=== PATIENT | female | born 1965 | race Caucasian/White ===

== ENCOUNTER 2017-03-23 21:27 | Inpatient (IN) ==
[2017-03-23] MEDS ORDERED: ALBUTEROL/IPRATROPIUM 3 ML NEB RESP TX STA (22:16)
[2017-03-23] MEDS ORDERED: INSULIN REGULAR 100 UNIT/ML SUBCUT STA (22:21)
[2017-03-23 22:43] LABS: ABG Base Excess 2.5 MMOL/L (-2.5-2.5); ABG HCO3 26.5 MMOL/L (20-26); ABG PCO2 47.9 MM HG (35-48); ABG PH 7.379 (7.35-7.45); ABG PO2 66.5 MM HG (80-95); ABG TCO2 25.7 MMOL/L (23-27); Allen Test Positive
[2017-03-23] MEDS ORDERED: INSULIN REGULAR 100 UNIT/ML ONE (23:10)
[2017-03-23 23:14] LABS: Basophils # 0.1 10*3/uL (0.0-0.2); Basophils % 0.7 % (0.0-0.8); Eosinophils # 0.2 10*3/uL (0.0-0.87); Eosinophils % 1.8 % (0.00-10.9); Hematocrit 32.9 VOL% (35.7-47.0); Hemoglobin 10.6 GM/DL (12.0-16.0); Immature Granulocytes % 0.5 %; Immature Granulocytes Absolute 0.05 #; Lymphocytes # 0.6 10*3/uL (1.4-4.0); Lymphocytes % 5.2 % (21.3-54.2); Mean Corpuscular HGB Conc 32.2 GM/DL (32-36); Mean Corpuscular Hemoglobin 32 PG (27-34); Monocytes # 0.4 10*3/uL (0.11-0.8); Monocytes % 3.4 % (1.7-12.7); Neutrophils # 9.4 10*3/uL (1.4-7.4); Neutrophils % 88.4 % (38.7-73.9); Platelet Count 207 T/CUMM (130-400); Red Blood Count 3.29 MC/CUMM (3.8-5.5); White Blood Count 10.6 T/CUMM (4-12)
[2017-03-23] MEDS ORDERED: LEVOFLOXACIN INJ 750 MG in PREMIX 1 EACH IV STA (23:30)
[2017-03-23 23:32] LABS: Alanine Aminotransferase 280 U/L (13-56); Albumin 3.5 G/DL (3.4-5.0); Alkaline Phosphatase 185 U/L (45-117); Aspartate Amino Transferase 164 U/L (0-37); Blood Urea Nitrogen 74 MG/DL (7-18); Calcium 7.8 MG/DL (8.5-10.1); Glucose 463 MG/DL (74-106); Potassium 5.6 MMOL/L (3.5-5.1); Sodium 136 MMOL/L (136-145); Total Protein 6.7 G/DL (6.4-8.3); Troponin I Only 0.019 NG/ML (0.00-0.045)
[2017-03-24] MEDS ORDERED: LEVOFLOXACIN INJ 150 ML IV ONE (00:15)
[2017-03-24] MEDS ORDERED: DEXTROSE 50% 25 GM/50 ML VIAL IV PRN ×2 (01:06→01:15)
[2017-03-24] MEDS ORDERED: GLUCAGON 1 MG VIAL IM PRN ×2 (01:06→01:15)
[2017-03-24] MEDS ORDERED: ACETAMINOPHEN 325 MG TABLET PO PRN (01:06)
[2017-03-24] MEDS ORDERED: HydrOXYzine PAMOATE 25 MG CAPSULE PO PRN (01:11)
[2017-03-24] MEDS: ALBUTEROL/IPRATROPIUM 3 ML NEB RESP TX SCH ×5 (02:25→23:57)
[2017-03-24 07:21] LABS: Basophils % 0.5 % (0.0-0.8); Eosinophils # 0.2 10*3/uL (0.0-0.87); Eosinophils % 2.6 % (0.00-10.9); Hematocrit 27.2 VOL% (35.7-47.0); Hemoglobin 9.2 GM/DL (12.0-16.0); Immature Granulocytes % 0.3 %; Immature Granulocytes Absolute 0.02 #; Lymphocytes # 0.9 10*3/uL (1.4-4.0); Mean Corpuscular HGB Conc 33.8 GM/DL (32-36); Mean Corpuscular Hemoglobin 33 PG (27-34); Mean Corpuscular Volume 96.8 FL (87-102); Mean Platelet Volume 11.9 FL (9.6-12.0); Monocytes # 0.4 10*3/uL (0.11-0.8); Monocytes % 6.3 % (1.7-12.7); Neutrophils # 4.6 10*3/uL (1.4-7.4); Neutrophils % 75.3 % (38.7-73.9); Platelet Count 179 T/CUMM (130-400); Red Blood Count 2.81 MC/CUMM (3.8-5.5); White Blood Count 6.1 T/CUMM (4-12)
[2017-03-24 07:59] LABS: Albumin 2.7 G/DL (3.4-5.0); Bilirubin,Total 0.8 MG/DL (0.2-1.0); Calcium 7.7 MG/DL (8.5-10.1); Osmolality,Calculated 312.5 MOS/KG (273-304); Potassium 4.8 MMOL/L (3.5-5.1); Total Protein 5.6 G/DL (6.4-8.3)
[2017-03-24 08:43] LABS: Hepatitis A Ab IgM Quant 0.05 Index; Hepatitis A Ab IgM Result Negative (Negative); Hepatitis B Core IgM Quant 0.07 Index; Hepatitis B Core IgM Result Negative (Negative); Hepatitis B Surface Ag Quant < 0.10 Index; Hepatitis B Surface Ag Result Negative (Negative); Hepatitis C Virus Ab Quant 0.14 Index; Hepatitis C Virus Ab Result Negative (Negative)
[2017-03-24] MEDS ORDERED: PNEUMOCOCCAL VACCINE (13 VALENT) 0.5 ML SYRINGE IM ONE (09:00)
[2017-03-24] MEDS ORDERED: INFLUENZA VIRUS VACCINE 0.5 ML SYRINGE IM ONE (09:00)
[2017-03-24] MEDS: INSULIN REGULAR 100 UNIT/ML SUBCUT SCH ×4 (09:08→20:54)
[2017-03-24] MEDS: ENOXAPARIN 30 MG/0.3 ML SYRINGE SUBCUT SCH (09:08)
[2017-03-24] MEDS: cefTRIAXone 1,000 MG in SYRINGE 1 EACH IV SCH (09:09)
[2017-03-24] MEDS: INSULIN LISPRO 100 UNIT/ML SUBCUT SCH ×3 (09:09→17:36)
[2017-03-24] MEDS: cloNIDine 0.1 MG TABLET PO SCH ×2 (09:10→20:53)
[2017-03-24] MEDS: CARVEDILOL 25 MG TABLET PO SCH ×2 (09:10→20:53)
[2017-03-24] MEDS: amLODIPine 10 MG TABLET PO SCH (09:10)
[2017-03-24] MEDS: AZITHROMYCIN INJ 500 MG in SODIUM CHLORIDE 0.45% 250 ML IV SCH (14:49)
[2017-03-24] MEDS: FOSINOPRIL 20 MG TABLET PO SCH (14:50)
[2017-03-24] MEDS ORDERED: diphenhydrAMINE CAP 25 MG CAPSULE PO ONE (19:36)
[2017-03-24] MEDS: AMITRIPTYLINE 10 MG TABLET PO SCH (20:53)
[2017-03-24] MEDS: INSULIN GLARGINE 100 UNIT/ML SUBCUT SCH (20:54)
[2017-03-25 03:04] LABS: Basophils # 0.1 10*3/uL (0.0-0.2); Basophils % 0.8 % (0.0-0.8); Eosinophils # 0.3 10*3/uL (0.0-0.87); Eosinophils % 4.5 % (0.00-10.9); Hematocrit 28.4 VOL% (35.7-47.0); Hemoglobin 9.1 GM/DL (12.0-16.0); Immature Granulocytes % 0.5 %; Immature Granulocytes Absolute 0.03 #; Lymphocytes # 1.3 10*3/uL (1.4-4.0); Lymphocytes % 19.9 % (21.3-54.2); Mean Corpuscular Hemoglobin 32 PG (27-34); Mean Corpuscular Volume 100.7 FL (87-102); Monocytes # 0.4 10*3/uL (0.11-0.8); Monocytes % 6.7 % (1.7-12.7); Neutrophils # 4.4 10*3/uL (1.4-7.4); Neutrophils % 67.6 % (38.7-73.9); Platelet Count 188 T/CUMM (130-400); Red Blood Count 2.82 MC/CUMM (3.8-5.5); Red Cell Distribution Width 15.1 % (9.3-17.3); White Blood Count 6.4 T/CUMM (4-12)
[2017-03-25 03:34] LABS: Albumin 2.9 G/DL (3.4-5.0); Bilirubin,Total 0.7 MG/DL (0.2-1.0); Calcium 7.6 MG/DL (8.5-10.1); Osmolality,Calculated 290.1 MOS/KG (273-304); Potassium 5.1 MMOL/L (3.5-5.1); Total Protein 5.8 G/DL (6.4-8.3)
[2017-03-25] MEDS: INSULIN REGULAR 100 UNIT/ML SUBCUT SCH ×3 (08:05→16:48)
[2017-03-25] MEDS: INSULIN LISPRO 100 UNIT/ML SUBCUT SCH ×3 (08:06→16:48)
[2017-03-25] MEDS: ALBUTEROL/IPRATROPIUM 3 ML NEB RESP TX SCH ×4 (08:23→23:18)
[2017-03-25] MEDS ORDERED: DEXTROSE 50% 25 GM/50 ML VIAL IV PRN (09:13)
[2017-03-25] MEDS ORDERED: GLUCAGON 1 MG VIAL IM PRN (09:13)
[2017-03-25] MEDS: cefTRIAXone 1,000 MG in SYRINGE 1 EACH IV SCH (10:04)
[2017-03-25] MEDS: ENOXAPARIN 30 MG/0.3 ML SYRINGE SUBCUT SCH (10:04)
[2017-03-25] MEDS: cloNIDine 0.1 MG TABLET PO SCH ×2 (10:05→21:40)
[2017-03-25] MEDS: amLODIPine 10 MG TABLET PO SCH (10:05)
[2017-03-25] MEDS: FOSINOPRIL 20 MG TABLET PO SCH (10:05)
[2017-03-25] MEDS: CARVEDILOL 25 MG TABLET PO SCH ×2 (10:05→21:40)
[2017-03-25] MEDS: AZITHROMYCIN INJ 500 MG in SODIUM CHLORIDE 0.45% 250 ML IV SCH (10:20)
[2017-03-25] MEDS ORDERED: LOPERAMIDE 2 MG CAPSULE PO PRN (13:43)
[2017-03-25] MEDS: AMITRIPTYLINE 10 MG TABLET PO SCH (21:40)
[2017-03-25] MEDS: INSULIN GLARGINE 100 UNIT/ML SUBCUT SCH (21:41)
[2017-03-26] MEDS: INSULIN REGULAR 100 UNIT/ML SUBCUT SCH ×3 (00:38→13:06)
[2017-03-26 03:03] LABS: Basophils % 0.7 % (0.0-0.8); Eosinophils # 0.4 10*3/uL (0.0-0.87); Eosinophils % 6.3 % (0.00-10.9); Hematocrit 26.7 VOL% (35.7-47.0); Hemoglobin 8.4 GM/DL (12.0-16.0); Immature Granulocytes % 0.3 %; Immature Granulocytes Absolute 0.02 #; Lymphocytes # 1.3 10*3/uL (1.4-4.0); Lymphocytes % 21.7 % (21.3-54.2); Mean Corpuscular HGB Conc 31.5 GM/DL (32-36); Mean Corpuscular Hemoglobin 32 PG (27-34); Mean Platelet Volume 11.4 FL (9.6-12.0); Monocytes # 0.4 10*3/uL (0.11-0.8); Monocytes % 7.1 % (1.7-12.7); Neutrophils # 3.7 10*3/uL (1.4-7.4); Neutrophils % 63.9 % (38.7-73.9); Platelet Count 169 T/CUMM (130-400); Red Blood Count 2.67 MC/CUMM (3.8-5.5); Red Cell Distribution Width 15.3 % (9.3-17.3); White Blood Count 5.8 T/CUMM (4-12)
[2017-03-26 03:30] LABS: Albumin 2.7 G/DL (3.4-5.0); Bilirubin,Total 0.6 MG/DL (0.2-1.0); Calcium 7.1 MG/DL (8.5-10.1); Osmolality,Calculated 298.8 MOS/KG (273-304); Potassium 5.5 MMOL/L (3.5-5.1); Total Protein 5.7 G/DL (6.4-8.3)
[2017-03-26] MEDS: ALBUTEROL/IPRATROPIUM 3 ML NEB RESP TX SCH (08:33)
[2017-03-26] MEDS: INSULIN LISPRO 100 UNIT/ML SUBCUT SCH ×2 (10:17→13:06)
[2017-03-26] MEDS: CARVEDILOL 25 MG TABLET PO SCH (10:22)
[2017-03-26] MEDS: FOSINOPRIL 20 MG TABLET PO SCH (10:22)
[2017-03-26] MEDS: cloNIDine 0.1 MG TABLET PO SCH (10:22)
[2017-03-26] MEDS: amLODIPine 10 MG TABLET PO SCH (10:22)
[2017-03-26] MEDS: ENOXAPARIN 30 MG/0.3 ML SYRINGE SUBCUT SCH (10:22)
[2017-03-26] MEDS: cefTRIAXone 1,000 MG in SYRINGE 1 EACH IV SCH (10:23)
[2017-03-26] MEDS ORDERED: MINOCYCLINE 100 MG CAPSULE PO SCH (12:00)
[2017-03-26 13:29] VITALS: BP 149/69
[2017-03-26] MEDS ORDERED: INFLUENZA VIRUS VACCINE 0.5 ML SYRINGE IM ONE (13:32)
== END 2017-03-26 13:34 | disposition home or self-care (01) | DRG 193 ==
LOC: N.ED 21:27 → N.EDINP 03-24 01:06 → SUATTDRO 03-24 01:06 → N.2E 03-24 01:30
PROVIDERS: ADMIT Internal Medicine; ATTEND Internal Medicine Infectious Disease

== ENCOUNTER 2017-05-10 00:53 | Inpatient (IN) ==
[2017-05-10] MEDS ORDERED: MORPHINE 2 MG/1 ML SYRINGE IV STA (01:22)
[2017-05-10] MEDS ORDERED: FUROSEMIDE 100 MG/10 ML VIAL IV STA (01:22)
[2017-05-10] MEDS ORDERED: ONDANSETRON 4 MG/2 ML VIAL IV STA (01:22)
[2017-05-10] MEDS ORDERED: NITROGLYCERIN 2% OINT 1 INCH/GM PACK TOP STA (01:22)
[2017-05-10] MEDS ORDERED: methylPREDNISolone SOD SUC 125 MG/2 ML VIAL IV STA (01:22)
[2017-05-10] MEDS ORDERED: ALBUTEROL 2.5 MG/3 ML NEB RESP TX SCH (01:30)
[2017-05-10] MEDS ORDERED: MORPHINE 2 MG/1 ML SYRINGE ONE (01:33)
[2017-05-10] MEDS ORDERED: FUROSEMIDE 40 MG/4 ML VIAL ONE (01:33)
[2017-05-10] MEDS ORDERED: NITROGLYCERIN 2% OINT 1 INCH/GM PACK TOP ONE (01:33)
[2017-05-10] MEDS ORDERED: ONDANSETRON 4 MG/2 ML VIAL ONE (01:33)
[2017-05-10] MEDS ORDERED: methylPREDNISolone SOD SUC 125 MG/2 ML VIAL ONE (01:34)
[2017-05-10 01:37] LABS: Basophils # 0.1 10*3/uL (0.0-0.2); Basophils % 0.7 % (0.0-0.8); Eosinophils # 0.4 10*3/uL (0.0-0.87); Eosinophils % 6.2 % (0.00-10.9); Hemoglobin 10.5 GM/DL (12.0-16.0); Immature Granulocytes % 0.4 %; Immature Granulocytes Absolute 0.03 #; Lymphocytes % 14.1 % (21.3-54.2); Mean Corpuscular HGB Conc 32.8 GM/DL (32-36); Mean Corpuscular Hemoglobin 32 PG (27-34); Mean Corpuscular Volume 98.5 FL (87-102); Mean Platelet Volume 12.3 FL (9.6-12.0); Monocytes # 0.4 10*3/uL (0.11-0.8); Monocytes % 5.5 % (1.7-12.7); Neutrophils # 5.1 10*3/uL (1.4-7.4); Neutrophils % 73.1 % (38.7-73.9); Platelet Count 159 T/CUMM (130-400); Red Blood Count 3.25 MC/CUMM (3.8-5.5); Red Cell Distribution Width 14.5 % (9.3-17.3); White Blood Count 6.9 T/CUMM (4-12)
[2017-05-10 01:51] LABS: PT Patient Result 10.5 SECS
[2017-05-10 02:18] LABS: Albumin 3.4 G/DL (3.4-5.0); Bilirubin,Total 0.7 MG/DL (0.2-1.0); Osmolality,Calculated 311.1 MOS/KG (273-304); Potassium 4.9 MMOL/L (3.5-5.1); Total Protein 6.5 G/DL (6.4-8.3); Troponin I Only 0.024 NG/ML (0.00-0.045)
[2017-05-10] MEDS ORDERED: INSULIN REGULAR 100 UNIT/ML SUBCUT STA (03:19)
[2017-05-10] MEDS ORDERED: LABETALOL 20 MG/4 ML SYRINGE IV ONE (04:16)
[2017-05-10] MEDS ORDERED: INSULIN REGULAR 100 UNIT/ML ONE (04:31)
[2017-05-10] MEDS ORDERED: GLUCAGON 1 MG VIAL IM PRN (06:56)
[2017-05-10] MEDS ORDERED: ACETAMINOPHEN 325 MG TABLET PO PRN (06:56)
[2017-05-10] MEDS ORDERED: HydrOXYzine PAMOATE 25 MG CAPSULE PO PRN (06:56)
[2017-05-10] MEDS ORDERED: DEXTROSE 50% 25 GM/50 ML VIAL IV PRN (06:56)
[2017-05-10 07:52] LABS: Troponin I Only 0.022 NG/ML (0.00-0.045)
[2017-05-10] MEDS: CARVEDILOL 25 MG TABLET PO SCH ×2 (09:05→21:04)
[2017-05-10] MEDS: cloNIDine 0.1 MG TABLET PO SCH ×2 (09:05→21:04)
[2017-05-10] MEDS: ENOXAPARIN 30 MG/0.3 ML SYRINGE SUBCUT SCH (09:05)
[2017-05-10] MEDS: CALCITRIOL 0.5 MCG CAPSULE PO SCH (09:05)
[2017-05-10] MEDS: amLODIPine 10 MG TABLET PO SCH (09:05)
[2017-05-10] MEDS: FOSINOPRIL 20 MG TABLET PO SCH (09:05)
[2017-05-10] MEDS: INSULIN REGULAR 100 UNIT/ML SUBCUT SCH ×2 (09:06→12:28)
[2017-05-10] MEDS: INSULIN LISPRO 100 UNIT/ML SUBCUT SCH ×4 (09:06→17:30)
[2017-05-10 13:22] LABS: Troponin I Only 0.021 NG/ML (0.00-0.045)
[2017-05-10] MEDS: hydrALAZINE 20 MG/1 ML VIAL IV PRN ×2 (15:49→23:40)
[2017-05-10] MEDS ORDERED: INSULIN GLARGINE 100 UNIT/ML SUBCUT SCH (21:00)
[2017-05-10] MEDS ORDERED: AMITRIPTYLINE 10 MG TABLET PO SCH (21:00)
[2017-05-11] MEDS: INSULIN LISPRO 100 UNIT/ML SUBCUT SCH ×5 (01:11→12:19)
[2017-05-11 04:59] LABS: Basophils % 0.4 % (0.0-0.8); Eosinophils # 0.2 10*3/uL (0.0-0.87); Eosinophils % 3.5 % (0.00-10.9); Hematocrit 27.2 VOL% (35.7-47.0); Immature Granulocytes % 0.3 %; Immature Granulocytes Absolute 0.02 #; Lymphocytes # 1.3 10*3/uL (1.4-4.0); Lymphocytes % 19.3 % (21.3-54.2); Mean Corpuscular HGB Conc 33.1 GM/DL (32-36); Mean Corpuscular Hemoglobin 32 PG (27-34); Mean Corpuscular Volume 97.5 FL (87-102); Monocytes # 0.5 10*3/uL (0.11-0.8); Monocytes % 7.7 % (1.7-12.7); Neutrophils # 4.7 10*3/uL (1.4-7.4); Neutrophils % 68.8 % (38.7-73.9); Platelet Count 142 T/CUMM (130-400); Red Blood Count 2.79 MC/CUMM (3.8-5.5); Red Cell Distribution Width 14.6 % (9.3-17.3); White Blood Count 6.9 T/CUMM (4-12)
[2017-05-11 05:30] LABS: Albumin 2.5 G/DL (3.4-5.0); Bilirubin,Total 0.6 MG/DL (0.2-1.0); Calcium 7.5 MG/DL (8.5-10.1); Osmolality,Calculated 287.8 MOS/KG (273-304); Potassium 4.9 MMOL/L (3.5-5.1); Total Protein 5.3 G/DL (6.4-8.3)
[2017-05-11] MEDS: CARVEDILOL 25 MG TABLET PO SCH (09:14)
[2017-05-11] MEDS: ENOXAPARIN 30 MG/0.3 ML SYRINGE SUBCUT SCH (09:14)
[2017-05-11] MEDS: cloNIDine 0.1 MG TABLET PO SCH (09:14)
[2017-05-11] MEDS: CALCITRIOL 0.5 MCG CAPSULE PO SCH (09:14)
[2017-05-11] MEDS: FOSINOPRIL 20 MG TABLET PO SCH (09:14)
[2017-05-11] MEDS: amLODIPine 10 MG TABLET PO SCH (09:14)
[2017-05-11 12:33] VITALS: BP 143/71
== END 2017-05-11 17:38 | disposition home or self-care (01) | DRG 189 ==
LOC: N.ED 00:53 → N.EDINP 04:07 → SUATTDRO 04:07 → N.TELES 06:45
PROVIDERS: ADMIT Family Medicine; ATTEND Internal Medicine

== ENCOUNTER 2017-05-29 08:31 | Inpatient (IN) ==
[2017-05-29 09:29] LABS: Basophils % 0.8 % (0.0-0.8); Eosinophils # 0.5 10*3/uL (0.0-0.87); Eosinophils % 12.4 % (0.00-10.9); Hematocrit 27.9 VOL% (35.7-47.0); Hemoglobin 9.4 GM/DL (12.0-16.0); Immature Granulocytes % 0.5 %; Immature Granulocytes Absolute 0.02 #; Lymphocytes # 0.4 10*3/uL (1.4-4.0); Lymphocytes % 11.4 % (21.3-54.2); Mean Corpuscular HGB Conc 33.7 GM/DL (32-36); Mean Corpuscular Hemoglobin 33 PG (27-34); Mean Corpuscular Volume 96.9 FL (87-102); Mean Platelet Volume 12.5 FL (9.6-12.0); Monocytes # 0.3 10*3/uL (0.11-0.8); Monocytes % 7.7 % (1.7-12.7); Neutrophils # 2.5 10*3/uL (1.4-7.4); Neutrophils % 67.2 % (38.7-73.9); Platelet Count 126 T/CUMM (130-400); Red Blood Count 2.88 MC/CUMM (3.8-5.5); Red Cell Distribution Width 13.5 % (9.3-17.3); White Blood Count 3.8 T/CUMM (4-12)
[2017-05-29 09:53] LABS: Albumin 3.2 G/DL (3.4-5.0); Bilirubin,Total 0.7 MG/DL (0.2-1.0); Calcium 7.4 MG/DL (8.5-10.1); Total Protein 6.6 G/DL (6.4-8.3)
[2017-05-29 09:54] LABS: Osmolality,Calculated 303.5 MOS/KG (273-304)
[2017-05-29 09:58] LABS: Potassium 6.3 MMOL/L (3.5-5.1)
[2017-05-29] MEDS ORDERED: SODIUM BICARBONATE 50 MEQ/50 ML VIAL IV STA (10:14)
[2017-05-29] MEDS ORDERED: INSULIN REGULAR 100 UNIT/ML IV STA (10:14)
[2017-05-29] MEDS ORDERED: DEXTROSE 50% 25 GM/50 ML VIAL IV STA (10:14)
[2017-05-29 10:19] LABS: Band Neutrophils 3 % (0-10); Eosinophils 16 % (0-10); Lymphocytes 12 % (20-55); Segmented Neutrophils 63 % (50-85); Total Cells Counted 100
[2017-05-29] MEDS ORDERED: DEXTROSE 50% 25 GM/50 ML SYRINGE IV ONE (10:19)
[2017-05-29 10:20] LABS: Hypochromasia 1+; Microcytosis Slight; Platelet Estimate Adequate
[2017-05-29] MEDS ORDERED: INSULIN REGULAR 100 UNIT/ML ONE (10:20)
[2017-05-29] MEDS ORDERED: SODIUM BICARBONATE 50 MEQ/50 ML SYRINGE IV ONE (10:21)
[2017-05-29] MEDS ORDERED: GLUCAGON 1 MG VIAL IM PRN (11:38)
[2017-05-29] MEDS ORDERED: DEXTROSE 50% 25 GM/50 ML VIAL IV PRN (11:38)
[2017-05-29] MEDS ORDERED: ONDANSETRON 4 MG/2 ML VIAL IV PRN (11:38)
[2017-05-29] MEDS ORDERED: ACETAMINOPHEN 325 MG TABLET PO PRN (11:38)
[2017-05-29] MEDS ORDERED: HydrOXYzine PAMOATE 25 MG CAPSULE PO PRN (11:42)
[2017-05-29] MEDS ORDERED: SODIUM CHLORIDE 0.9% 100 ML IV ONE (12:25)
[2017-05-29] MEDS ORDERED: DILTIAZEM 100 MG VIAL.ADD IV ONE (12:25)
[2017-05-29 16:50] LABS: Hepatitis A Ab IgM Quant 0.07 Index; Hepatitis A Ab IgM Result Negative (Negative); Hepatitis B Core IgM Quant 0.17 Index; Hepatitis B Core IgM Result Negative (Negative); Hepatitis B Surface Ag Quant < 0.10 Index; Hepatitis B Surface Ag Result Negative (Negative); Hepatitis C Virus Ab Quant 0.07 Index; Hepatitis C Virus Ab Result Negative (Negative)
[2017-05-29] MEDS: INSULIN LISPRO 100 UNIT/ML SUBCUT SCH ×3 (18:08→23:45)
[2017-05-29] MEDS: CARVEDILOL 25 MG TABLET PO SCH (18:41)
[2017-05-29] MEDS: LORazepam 0.5 MG TABLET PO SCH (21:32)
[2017-05-29] MEDS: cloNIDine 0.1 MG TABLET PO SCH (21:32)
[2017-05-29] MEDS: FLUoxetine 20 MG CAPSULE PO SCH (21:32)
[2017-05-29] MEDS: AMITRIPTYLINE 10 MG TABLET PO SCH (21:32)
[2017-05-30 04:49] LABS: Basophils % 0.6 % (0.0-0.8); Eosinophils # 0.4 10*3/uL (0.0-0.87); Eosinophils % 11.7 % (0.00-10.9); Hematocrit 25.7 VOL% (35.7-47.0); Hemoglobin 8.6 GM/DL (12.0-16.0); Immature Granulocytes % 0.6 %; Immature Granulocytes Absolute 0.02 #; Lymphocytes # 0.7 10*3/uL (1.4-4.0); Lymphocytes % 19.2 % (21.3-54.2); Mean Corpuscular HGB Conc 33.5 GM/DL (32-36); Mean Corpuscular Hemoglobin 33 PG (27-34); Mean Platelet Volume 12.2 FL (9.6-12.0); Monocytes # 0.2 10*3/uL (0.11-0.8); Monocytes % 6.7 % (1.7-12.7); Neutrophils # 2.2 10*3/uL (1.4-7.4); Neutrophils % 61.2 % (38.7-73.9); Platelet Count 112 T/CUMM (130-400); Red Blood Count 2.65 MC/CUMM (3.8-5.5); Red Cell Distribution Width 13.7 % (9.3-17.3); White Blood Count 3.6 T/CUMM (4-12)
[2017-05-30 05:16] LABS: Band Neutrophils 3 % (0-10); Eosinophils 17 % (0-10); Lymphocytes 14 % (20-55); Segmented Neutrophils 63 % (50-85); Total Cells Counted 100
[2017-05-30 05:17] LABS: Hypochromasia 1+; Microcytosis Slight; Platelet Estimate Decreased
[2017-05-30 05:23] LABS: Calcium 7.2 MG/DL (8.5-10.1); Osmolality,Calculated 295.4 MOS/KG (273-304); Potassium 4.6 MMOL/L (3.5-5.1); Thyroid Stimulating Hormone 1.58 uIU/ml (0.358-3.74)
[2017-05-30] MEDS: PANTOPRAZOLE 40 MG TABLET PO SCH (09:07)
[2017-05-30] MEDS: FOSINOPRIL 20 MG TABLET PO SCH (09:07)
[2017-05-30] MEDS: CARVEDILOL 25 MG TABLET PO SCH ×2 (09:07→16:56)
[2017-05-30] MEDS: INSULIN LISPRO 100 UNIT/ML SUBCUT SCH ×4 (09:07→21:49)
[2017-05-30] MEDS: LORazepam 0.5 MG TABLET PO SCH ×2 (09:07→21:49)
[2017-05-30] MEDS: valACYclovir 500 MG TABLET PO SCH (09:07)
[2017-05-30] MEDS: amLODIPine 10 MG TABLET PO SCH (09:07)
[2017-05-30] MEDS ORDERED: CALAMINE LOTION 180 ML BOTTLE TOP PRN (14:57)
[2017-05-30] MEDS ORDERED: INSULIN GLARGINE 100 UNIT/ML SUBCUT SCH (21:00)
[2017-05-30] MEDS: AMITRIPTYLINE 10 MG TABLET PO SCH (21:48)
[2017-05-30] MEDS: cloNIDine 0.1 MG TABLET PO SCH (21:49)
[2017-05-30] MEDS: FLUoxetine 20 MG CAPSULE PO SCH (21:49)
[2017-05-31 06:13] LABS: Calcium 6.6 MG/DL (8.5-10.1)
[2017-05-31 06:14] LABS: Osmolality,Calculated 291.8 MOS/KG (273-304); Potassium 5.1 MMOL/L (3.5-5.1)
[2017-05-31] MEDS: INSULIN LISPRO 100 UNIT/ML SUBCUT SCH ×3 (07:30→17:23)
[2017-05-31] MEDS: FOSINOPRIL 20 MG TABLET PO SCH (08:23)
[2017-05-31] MEDS: CARVEDILOL 25 MG TABLET PO SCH ×2 (08:24→17:23)
[2017-05-31] MEDS: valACYclovir 500 MG TABLET PO SCH (08:24)
[2017-05-31] MEDS: PANTOPRAZOLE 40 MG TABLET PO SCH (08:24)
[2017-05-31] MEDS: LORazepam 0.5 MG TABLET PO SCH (08:24)
[2017-05-31] MEDS: amLODIPine 10 MG TABLET PO SCH (08:24)
[2017-05-31] MEDS ORDERED: cloNIDine 0.1 MG TABLET PO ONE (13:22)
[2017-05-31 16:37] VITALS: BP 187/73
== END 2017-05-31 18:25 | disposition home or self-care (01) | DRG 880 ==
LOC: N.ED 08:31 → N.EDINP 11:36 → N.2E 13:29
PROVIDERS: ADMIT Internal Medicine Infectious Disease; ATTEND Internal Medicine Infectious Disease

== ENCOUNTER 2017-06-04 21:06 | Inpatient (IN) ==
[2017-06-04] MEDS ORDERED: FUROSEMIDE 40 MG/4 ML VIAL IV STA (22:11)
[2017-06-04] MEDS ORDERED: FUROSEMIDE 40 MG/4 ML VIAL ONE (22:34)
[2017-06-04 22:38] LABS: Basophils # 0.1 10*3/uL (0.0-0.2); Basophils % 0.7 % (0.0-0.8); Eosinophils # 0.4 10*3/uL (0.0-0.87); Hematocrit 26.4 VOL% (35.7-47.0); Hemoglobin 8.6 GM/DL (12.0-16.0); Immature Granulocytes Absolute 0.09 #; Lymphocytes # 0.8 10*3/uL (1.4-4.0); Lymphocytes % 9.6 % (21.3-54.2); Mean Corpuscular HGB Conc 32.6 GM/DL (32-36); Mean Corpuscular Hemoglobin 32 PG (27-34); Mean Corpuscular Volume 98.9 FL (87-102); Monocytes # 0.4 10*3/uL (0.11-0.8); Monocytes % 4.6 % (1.7-12.7); Neutrophils # 6.9 10*3/uL (1.4-7.4); Neutrophils % 79.1 % (38.7-73.9); Platelet Count 168 T/CUMM (130-400); Red Blood Count 2.67 MC/CUMM (3.8-5.5); Red Cell Distribution Width 14.2 % (9.3-17.3); White Blood Count 8.7 T/CUMM (4-12)
[2017-06-04] MEDS ORDERED: ALBUTEROL/IPRATROPIUM 3 ML NEB RESP TX STA (22:52)
[2017-06-04 22:57] LABS: Troponin I Only < 0.015 NG/ML (0.00-0.045)
[2017-06-04 22:59] LABS: Calcium 7.1 MG/DL (8.5-10.1)
[2017-06-04] MEDS ORDERED: NITROGLYCERIN 2% OINT 1 INCH/GM PACK TOP STA (23:56)
[2017-06-05] MEDS ORDERED: cloNIDine 0.1 MG TABLET ONE (01:24)
[2017-06-05] MEDS: cloNIDine 0.1 MG TABLET PO PRN ×2 (01:26→08:26)
[2017-06-05] MEDS ORDERED: NITROGLYCERIN DRIP 50 MG/250 ML BOTTLE IV SCH (01:30)
[2017-06-05] MEDS ORDERED: GLUCAGON 1 MG VIAL IM PRN (03:13)
[2017-06-05] MEDS ORDERED: DEXTROSE 50% 25 GM/50 ML VIAL IV PRN (03:13)
[2017-06-05] MEDS ORDERED: ONDANSETRON 4 MG/2 ML VIAL IV PRN (03:13)
[2017-06-05] MEDS ORDERED: MORPHINE 2 MG/1 ML SYRINGE IV PRN (03:13)
[2017-06-05] MEDS: DOCUSATE SODIUM 100 MG CAPSULE PO SCH ×2 (08:25→21:24)
[2017-06-05] MEDS: INSULIN REGULAR 100 UNIT/ML SUBCUT SCH ×3 (08:25→21:24)
[2017-06-05] MEDS: ENOXAPARIN 30 MG/0.3 ML SYRINGE SUBCUT SCH (08:25)
[2017-06-05] MEDS: PANTOPRAZOLE 40 MG TABLET PO SCH (08:25)
[2017-06-05 10:38] LABS: Hepatitis A Ab IgM Quant 0.09 Index; Hepatitis A Ab IgM Result Negative (Negative); Hepatitis B Core IgM Quant 0.19 Index; Hepatitis B Core IgM Result Negative (Negative); Hepatitis B Surface Ag Quant 0.53 Index; Hepatitis B Surface Ag Result Negative (Negative); Hepatitis C Virus Ab Quant 0.09 Index; Hepatitis C Virus Ab Result Negative (Negative)
[2017-06-05] MEDS ORDERED: ONDANSETRON ODT 4 MG TABLET PO PRN (16:43)
[2017-06-05] MEDS ORDERED: HydrOXYzine PAMOATE 25 MG CAPSULE PO PRN (16:43)
[2017-06-05] MEDS ORDERED: CALAMINE LOTION 180 ML BOTTLE TOP PRN (16:43)
[2017-06-05] MEDS ORDERED: traMADol 50 MG TABLET PO PRN (16:43)
[2017-06-05] MEDS ORDERED: hydrALAZINE 20 MG/1 ML VIAL IV ONE (18:08)
[2017-06-05] MEDS ORDERED: FOSINOPRIL 20 MG TABLET PO ONE (18:09)
[2017-06-05] MEDS ORDERED: amLODIPine 10 MG TABLET PO ONE (18:09)
[2017-06-05] MEDS: ALBUTEROL/IPRATROPIUM 3 ML NEB RESP TX SCH ×2 (18:18→20:57)
[2017-06-05 18:26] LABS: ABG Base Excess 5.4 MMOL/L (-2.5-2.5); ABG HCO3 29.2 MMOL/L (20-26); ABG Oxygen Saturation 90.6 % (95-100); ABG PCO2 37.6 MM HG (35-48); ABG PH 7.494 (7.35-7.45); ABG PO2 58.1 MM HG (80-95); ABG TCO2 26.5 MMOL/L (23-27)
[2017-06-05 19:10] LABS: Calcium 7.6 MG/DL (8.5-10.1); Potassium 5.1 MMOL/L (3.5-5.1)
[2017-06-05] MEDS: LORazepam 2 MG/1 ML VIAL IV PRN (19:30)
[2017-06-05] MEDS: NITROGLYCERIN DRIP 50 MG/250 ML BOTTLE IV SCH (21:00)
[2017-06-05] MEDS: INSULIN LISPRO 100 UNIT/ML SUBCUT SCH (21:24)
[2017-06-05] MEDS: CARVEDILOL 25 MG TABLET PO SCH (21:24)
[2017-06-05] MEDS: FLUoxetine 20 MG CAPSULE PO SCH (21:25)
[2017-06-05] MEDS: AMITRIPTYLINE 10 MG TABLET PO SCH (21:25)
[2017-06-05] MEDS: INSULIN GLARGINE 100 UNIT/ML SUBCUT SCH (21:25)
[2017-06-05 22:53] LABS: ABG Base Excess 2.4 MMOL/L (-2.5-2.5); ABG HCO3 26.5 MMOL/L (20-26); ABG Oxygen Saturation 97.6 % (95-100); ABG PCO2 39.8 MM HG (35-48); ABG PH 7.435 (7.35-7.45); ABG PO2 92.6 MM HG (80-95); ABG TCO2 24.8 MMOL/L (23-27)
[2017-06-06] MEDS: ALBUTEROL/IPRATROPIUM 3 ML NEB RESP TX SCH ×7 (00:22→23:45)
[2017-06-06] MEDS: cloNIDine 0.1 MG TABLET PO PRN ×4 (02:44→20:37)
[2017-06-06] MEDS: INSULIN REGULAR 100 UNIT/ML SUBCUT SCH ×5 (07:30→20:09)
[2017-06-06] MEDS: PANTOPRAZOLE 40 MG TABLET PO SCH (08:46)
[2017-06-06] MEDS: amLODIPine 10 MG TABLET PO SCH (08:46)
[2017-06-06] MEDS: CARVEDILOL 25 MG TABLET PO SCH ×2 (08:46→20:37)
[2017-06-06] MEDS: ENOXAPARIN 30 MG/0.3 ML SYRINGE SUBCUT SCH (08:46)
[2017-06-06] MEDS: DOCUSATE SODIUM 100 MG CAPSULE PO SCH ×2 (08:46→20:36)
[2017-06-06] MEDS: INSULIN LISPRO 100 UNIT/ML SUBCUT SCH ×3 (08:47→17:11)
[2017-06-06] MEDS: FOSINOPRIL 20 MG TABLET PO SCH (09:35)
[2017-06-06 13:42] LABS: Osmolality,Calculated 294.5 MOS/KG (273-304); Potassium 5.6 MMOL/L (3.5-5.1)
[2017-06-06] MEDS: NITROGLYCERIN DRIP 50 MG/250 ML BOTTLE IV SCH (20:09)
[2017-06-06] MEDS: HydrOXYzine PAMOATE 25 MG CAPSULE PO PRN (20:36)
[2017-06-06] MEDS: AMITRIPTYLINE 10 MG TABLET PO SCH (20:37)
[2017-06-06] MEDS: FLUoxetine 20 MG CAPSULE PO SCH (20:37)
[2017-06-06] MEDS: INSULIN GLARGINE 100 UNIT/ML SUBCUT SCH (20:37)
[2017-06-07] MEDS: cloNIDine 0.1 MG TABLET PO PRN ×4 (00:17→07:46)
[2017-06-07] MEDS: ALBUTEROL/IPRATROPIUM 3 ML NEB RESP TX SCH ×5 (03:10→21:15)
[2017-06-07 05:13] LABS: Basophils % 0.5 % (0.0-0.8); Eosinophils # 0.4 10*3/uL (0.0-0.87); Eosinophils % 7.3 % (0.00-10.9); Hematocrit 22.8 VOL% (35.7-47.0); Hemoglobin 7.4 GM/DL (12.0-16.0); Immature Granulocytes % 0.5 %; Immature Granulocytes Absolute 0.03 #; Lymphocytes # 1.1 10*3/uL (1.4-4.0); Lymphocytes % 19.4 % (21.3-54.2); Mean Corpuscular HGB Conc 32.5 GM/DL (32-36); Mean Corpuscular Hemoglobin 32 PG (27-34); Mean Corpuscular Volume 98.7 FL (87-102); Mean Platelet Volume 12.1 FL (9.6-12.0); Monocytes # 0.4 10*3/uL (0.11-0.8); Monocytes % 7.3 % (1.7-12.7); Neutrophils # 3.7 10*3/uL (1.4-7.4); Platelet Count 158 T/CUMM (130-400); Red Blood Count 2.31 MC/CUMM (3.8-5.5); Red Cell Distribution Width 14.4 % (9.3-17.3); White Blood Count 5.8 T/CUMM (4-12)
[2017-06-07 05:31] LABS: Calcium 6.9 MG/DL (8.5-10.1); Osmolality,Calculated 296.5 MOS/KG (273-304); Potassium 5.9 MMOL/L (3.5-5.1)
[2017-06-07] MEDS: INSULIN REGULAR 100 UNIT/ML SUBCUT SCH ×4 (08:03→22:44)
[2017-06-07] MEDS: CARVEDILOL 25 MG TABLET PO SCH ×2 (08:19→22:44)
[2017-06-07] MEDS: PANTOPRAZOLE 40 MG TABLET PO SCH (08:19)
[2017-06-07] MEDS: amLODIPine 10 MG TABLET PO SCH (08:19)
[2017-06-07] MEDS: ENOXAPARIN 30 MG/0.3 ML SYRINGE SUBCUT SCH (08:19)
[2017-06-07] MEDS: DOCUSATE SODIUM 100 MG CAPSULE PO SCH ×2 (08:19→22:17)
[2017-06-07] MEDS: INSULIN LISPRO 100 UNIT/ML SUBCUT SCH ×3 (08:20→18:45)
[2017-06-07] MEDS: FOSINOPRIL 20 MG TABLET PO SCH ×3 (08:21→22:43)
[2017-06-07] MEDS ORDERED: valACYclovir 500 MG TABLET PO SCH (09:00)
[2017-06-07] MEDS ORDERED: SODIUM CHLORIDE 0.9% 1,000 ML IV PRN (14:13)
[2017-06-07] MEDS: FLUoxetine 20 MG CAPSULE PO SCH (22:43)
[2017-06-07] MEDS: AMITRIPTYLINE 10 MG TABLET PO SCH (22:44)
[2017-06-07] MEDS: INSULIN GLARGINE 100 UNIT/ML SUBCUT SCH (22:45)
[2017-06-07] MEDS: HydrOXYzine PAMOATE 25 MG CAPSULE PO PRN (22:53)
[2017-06-07] MEDS: NITROGLYCERIN DRIP 50 MG/250 ML BOTTLE IV SCH (23:38)
[2017-06-08] MEDS: ALBUTEROL/IPRATROPIUM 3 ML NEB RESP TX SCH ×6 (00:55→19:40)
[2017-06-08 01:21] LABS: Hematocrit 30.4 VOL% (35.7-47.0); Hemoglobin 10.5 GM/DL (12.0-16.0)
[2017-06-08] MEDS: LORazepam 2 MG/1 ML VIAL IV PRN (02:01)
[2017-06-08] MEDS: cloNIDine 0.1 MG TABLET PO PRN ×2 (02:01→10:12)
[2017-06-08] MEDS: amLODIPine 10 MG TABLET PO SCH (08:38)
[2017-06-08] MEDS: ENOXAPARIN 30 MG/0.3 ML SYRINGE SUBCUT SCH (08:38)
[2017-06-08] MEDS: PANTOPRAZOLE 40 MG TABLET PO SCH (08:38)
[2017-06-08] MEDS: FOSINOPRIL 20 MG TABLET PO SCH ×2 (08:38→20:50)
[2017-06-08] MEDS: CARVEDILOL 25 MG TABLET PO SCH ×2 (08:38→20:51)
[2017-06-08] MEDS: DOCUSATE SODIUM 100 MG CAPSULE PO SCH ×2 (08:38→20:51)
[2017-06-08] MEDS: INSULIN LISPRO 100 UNIT/ML SUBCUT SCH ×3 (08:41→17:25)
[2017-06-08] MEDS: INSULIN REGULAR 100 UNIT/ML SUBCUT SCH ×4 (08:41→21:44)
[2017-06-08] MEDS: FLUoxetine 20 MG CAPSULE PO SCH (20:50)
[2017-06-08] MEDS: INSULIN GLARGINE 100 UNIT/ML SUBCUT SCH (20:51)
[2017-06-08] MEDS: AMITRIPTYLINE 10 MG TABLET PO SCH (20:51)
[2017-06-08] MEDS: NITROGLYCERIN DRIP 50 MG/250 ML BOTTLE IV SCH (20:52)
[2017-06-09] MEDS: ALBUTEROL/IPRATROPIUM 3 ML NEB RESP TX SCH ×6 (00:20→19:03)
[2017-06-09] MEDS: hydrALAZINE 20 MG/1 ML VIAL IV PRN (00:55)
[2017-06-09] MEDS: INSULIN REGULAR 100 UNIT/ML SUBCUT SCH ×4 (08:41→21:26)
[2017-06-09] MEDS: DOCUSATE SODIUM 100 MG CAPSULE PO SCH ×2 (09:31→21:26)
[2017-06-09] MEDS: PANTOPRAZOLE 40 MG TABLET PO SCH (09:32)
[2017-06-09] MEDS: amLODIPine 10 MG TABLET PO SCH (09:32)
[2017-06-09] MEDS: CARVEDILOL 25 MG TABLET PO SCH ×2 (09:32→21:26)
[2017-06-09] MEDS: FOSINOPRIL 20 MG TABLET PO SCH ×2 (09:32→21:26)
[2017-06-09] MEDS: INSULIN LISPRO 100 UNIT/ML SUBCUT SCH ×3 (09:32→16:24)
[2017-06-09] MEDS: ENOXAPARIN 30 MG/0.3 ML SYRINGE SUBCUT SCH (09:32)
[2017-06-09] MEDS: cloNIDine 0.1 MG TABLET PO SCH ×2 (09:32→21:26)
[2017-06-09] MEDS: cloNIDine 0.1 MG TABLET PO PRN (18:09)
[2017-06-09] MEDS: FLUoxetine 20 MG CAPSULE PO SCH (21:25)
[2017-06-09] MEDS: AMITRIPTYLINE 10 MG TABLET PO SCH (21:26)
[2017-06-09] MEDS: INSULIN GLARGINE 100 UNIT/ML SUBCUT SCH (21:27)
[2017-06-09] MEDS: HydrOXYzine PAMOATE 25 MG CAPSULE PO PRN (21:30)
[2017-06-10] MEDS: ALBUTEROL/IPRATROPIUM 3 ML NEB RESP TX SCH ×4 (00:41→10:47)
[2017-06-10] MEDS: hydrALAZINE 20 MG/1 ML VIAL IV PRN (00:53)
[2017-06-10] MEDS: LORazepam 2 MG/1 ML VIAL IV PRN (02:03)
[2017-06-10] MEDS: INSULIN REGULAR 100 UNIT/ML SUBCUT SCH ×2 (09:38→12:10)
[2017-06-10] MEDS: PANTOPRAZOLE 40 MG TABLET PO SCH (10:50)
[2017-06-10] MEDS: amLODIPine 10 MG TABLET PO SCH (10:50)
[2017-06-10] MEDS: cloNIDine 0.1 MG TABLET PO SCH (10:51)
[2017-06-10] MEDS: INSULIN LISPRO 100 UNIT/ML SUBCUT SCH ×2 (10:51→12:10)
[2017-06-10] MEDS: ENOXAPARIN 30 MG/0.3 ML SYRINGE SUBCUT SCH (10:51)
[2017-06-10] MEDS: DOCUSATE SODIUM 100 MG CAPSULE PO SCH (10:51)
[2017-06-10] MEDS: FOSINOPRIL 20 MG TABLET PO SCH (10:51)
[2017-06-10] MEDS: CARVEDILOL 25 MG TABLET PO SCH (10:51)
[2017-06-10 12:25] VITALS: BP 184/84
== END 2017-06-10 13:20 | disposition home or self-care (01) | DRG 189 ==
LOC: N.ED 21:06 → N.EDINP 21:06 → SUATTDRO 06-05 00:02 → N.5E 06-05 01:50 → SUATTDRO 06-05 18:44 → N.CC 06-05 19:25 → N.5E 06-09 01:24
PROVIDERS: ADMIT Internal Medicine; ATTEND Internal Medicine Cardiovascular Disease

== ENCOUNTER 2017-10-01 10:46 | Observation (INO) ==
[2017-10-01 13:04] LABS: Bilirubin,Total 0.6 MG/DL (0.2-1.0); Calcium 7.7 MG/DL (8.5-10.1); Osmolality,Calculated 310.2 MOS/KG (273-304); Potassium 5.5 MMOL/L (3.5-5.1); Total Protein 6.9 G/DL (6.4-8.3)
[2017-10-01 14:59] LABS: Basophils # 0.1 10*3/uL (0.0-0.2); Basophils % 0.7 % (0.0-0.8); Eosinophils # 0.5 10*3/uL (0.0-0.87); Eosinophils % 6.7 % (0.00-10.9); Hematocrit 39.3 VOL% (35.7-47.0); Hemoglobin 12.8 GM/DL (12.0-16.0); Immature Granulocytes % 0.5 %; Immature Granulocytes Absolute 0.04 #; Lymphocytes # 0.6 10*3/uL (1.4-4.0); Lymphocytes % 8.4 % (21.3-54.2); Mean Corpuscular HGB Conc 32.6 GM/DL (32-36); Mean Corpuscular Hemoglobin 32 PG (27-34); Mean Platelet Volume 12.9 FL (9.6-12.0); Monocytes # 0.5 10*3/uL (0.11-0.8); Monocytes % 6.1 % (1.7-12.7); Neutrophils # 5.8 10*3/uL (1.4-7.4); Neutrophils % 77.6 % (38.7-73.9); Platelet Count 106 T/CUMM (130-400); Red Blood Count 4.01 MC/CUMM (3.8-5.5); Red Cell Distribution Width 16.5 % (9.3-17.3); White Blood Count 7.5 T/CUMM (4-12)
[2017-10-02 05:58] LABS: Basophils % 0.6 % (0.0-0.8); Eosinophils # 0.3 10*3/uL (0.0-0.87); Eosinophils % 6.8 % (0.00-10.9); Hematocrit 24.4 VOL% (35.7-47.0); Immature Granulocytes % 0.6 %; Immature Granulocytes Absolute 0.03 #; Lymphocytes # 0.8 10*3/uL (1.4-4.0); Lymphocytes % 15.6 % (21.3-54.2); Mean Corpuscular HGB Conc 32.8 GM/DL (32-36); Mean Corpuscular Hemoglobin 32 PG (27-34); Mean Platelet Volume 12.8 FL (9.6-12.0); Monocytes # 0.3 10*3/uL (0.11-0.8); Monocytes % 7.1 % (1.7-12.7); Neutrophils # 3.3 10*3/uL (1.4-7.4); Neutrophils % 69.3 % (38.7-73.9); Red Cell Distribution Width 16.9 % (9.3-17.3)
[2017-10-02 06:24] LABS: Bilirubin,Total 0.7 MG/DL (0.2-1.0); Osmolality,Calculated 313.7 MOS/KG (273-304); Thyroid Stimulating Hormone 1.31 uIU/ml (0.358-3.74); Total Protein 5.9 G/DL (6.4-8.3)
[2017-10-02 07:23] LABS: Red Blood Count 2.49 MC/CUMM (3.8-5.5); White Blood Count 4.8 T/CUMM (4-12)
[2017-10-02 07:24] LABS: Platelet Count 138 T/CUMM (130-400)
[2017-10-03 06:42] LABS: Basophils # 0.1 10*3/uL (0.0-0.2); Eosinophils # 0.4 10*3/uL (0.0-0.87); Eosinophils % 7.3 % (0.00-10.9); Hematocrit 29.7 VOL% (35.7-47.0); Hemoglobin 9.3 GM/DL (12.0-16.0); Immature Granulocytes % 0.8 %; Immature Granulocytes Absolute 0.04 #; Lymphocytes # 0.8 10*3/uL (1.4-4.0); Mean Corpuscular HGB Conc 31.3 GM/DL (32-36); Mean Corpuscular Hemoglobin 32 PG (27-34); Mean Corpuscular Volume 100.7 FL (87-102); Mean Platelet Volume 12.2 FL (9.6-12.0); Monocytes # 0.4 10*3/uL (0.11-0.8); Monocytes % 7.1 % (1.7-12.7); Neutrophils # 3.3 10*3/uL (1.4-7.4); Neutrophils % 67.8 % (38.7-73.9); Platelet Count 183 T/CUMM (130-400); Red Blood Count 2.95 MC/CUMM (3.8-5.5); Red Cell Distribution Width 17.4 % (9.3-17.3); White Blood Count 4.9 T/CUMM (4-12)
[2017-10-03 07:14] LABS: Calcium 7.4 MG/DL (8.5-10.1); Osmolality,Calculated 295.4 MOS/KG (273-304); Potassium 4.8 MMOL/L (3.5-5.1)
[2017-10-03 16:43] VITALS: BP 145/95
== END 2017-10-03 16:55 | disposition home or self-care (01) ==
LOC: N.EDINP 10:46 → N.ED 10:46 → SUATTDRO 14:59 → N.3E 15:58
PROVIDERS: ADMIT Hospitalist; ATTEND Emergency Medicine

== ENCOUNTER 2017-10-23 10:55 | Inpatient (IN) ==
[2017-10-23] MEDS ORDERED: ONDANSETRON 4 MG/2 ML VIAL IV STA (11:42)
[2017-10-23] MEDS ORDERED: ALBUTEROL 2.5 MG/3 ML NEB RESP TX STA (11:43)
[2017-10-23 12:25] LABS: Basophils # 0.1 10*3/uL (0.0-0.2); Basophils % 0.6 % (0.0-0.8); Eosinophils # 0.4 10*3/uL (0.0-0.87); Eosinophils % 4.7 % (0.00-10.9); Hemoglobin 9.4 GM/DL (12.0-16.0); Immature Granulocytes % 0.5 %; Immature Granulocytes Absolute 0.04 #; Lymphocytes # 0.6 10*3/uL (1.4-4.0); Lymphocytes % 7.1 % (21.3-54.2); Mean Corpuscular HGB Conc 32.4 GM/DL (32-36); Mean Corpuscular Hemoglobin 31 PG (27-34); Mean Platelet Volume 11.9 FL (9.6-12.0); Monocytes # 0.4 10*3/uL (0.11-0.8); Neutrophils # 7.1 10*3/uL (1.4-7.4); Neutrophils % 82.1 % (38.7-73.9); Platelet Count 185 T/CUMM (130-400); Red Blood Count 3.02 MC/CUMM (3.8-5.5); Red Cell Distribution Width 16.1 % (9.3-17.3); White Blood Count 8.6 T/CUMM (4-12)
[2017-10-23 12:54] LABS: Albumin 3.2 G/DL (3.4-5.0); Bilirubin,Total 0.5 MG/DL (0.2-1.0); Calcium 6.3 MG/DL (8.5-10.1); Osmolality,Calculated 316.4 MOS/KG (273-304); Total Protein 7.4 G/DL (6.4-8.3)
[2017-10-23 13:10] LABS: Potassium 7.7 MMOL/L (3.5-5.1)
[2017-10-23] MEDS ORDERED: INSULIN REGULAR 100 UNIT/ML IV STA (13:56)
[2017-10-23] MEDS ORDERED: CALCIUM GLUCONATE 1,000 MG in SODIUM CHLORIDE 0.9% 100 ML IV ONE (13:56)
[2017-10-23] MEDS ORDERED: DEXTROSE 50% 25 GM/50 ML VIAL IV STA (13:56)
[2017-10-23] MEDS ORDERED: SODIUM BICARBONATE 50 MEQ/50 ML VIAL IV STA (13:58)
[2017-10-23] MEDS ORDERED: SODIUM BICARBONATE 50 MEQ/50 ML SYRINGE IV ONE (14:19)
[2017-10-23] MEDS ORDERED: DEXTROSE 50% 25 GM/50 ML SYRINGE IV ONE (14:19)
[2017-10-23] MEDS ORDERED: CALCIUM GLUCONATE 1,000 MG/10 ML VIAL IV ONE (14:20)
[2017-10-23] MEDS ORDERED: HydrOXYzine PAMOATE 25 MG CAPSULE PO PRN (15:20)
[2017-10-23] MEDS ORDERED: LORazepam 2 MG/1 ML VIAL IV PRN (19:29)
[2017-10-23] MEDS: INSULIN LISPRO 100 UNIT/ML SUBCUT SCH (19:40)
[2017-10-23] MEDS ORDERED: AMITRIPTYLINE 10 MG TABLET PO SCH (21:00)
[2017-10-23] MEDS: INSULIN GLARGINE 100 UNIT/ML SUBCUT SCH (21:17)
[2017-10-23] MEDS: CARVEDILOL 25 MG TABLET PO SCH (21:17)
[2017-10-23] MEDS: cloNIDine 0.1 MG TABLET PO SCH (21:17)
[2017-10-24 04:45] LABS: Basophils # 0.1 10*3/uL (0.0-0.2); Eosinophils # 0.4 10*3/uL (0.0-0.87); Eosinophils % 7.9 % (0.00-10.9); Hematocrit 28.2 VOL% (35.7-47.0); Hemoglobin 9.1 GM/DL (12.0-16.0); Immature Granulocytes % 0.4 %; Immature Granulocytes Absolute 0.02 #; Lymphocytes # 0.9 10*3/uL (1.4-4.0); Lymphocytes % 17.3 % (21.3-54.2); Mean Corpuscular HGB Conc 32.3 GM/DL (32-36); Mean Corpuscular Hemoglobin 31 PG (27-34); Mean Corpuscular Volume 95.3 FL (87-102); Mean Platelet Volume 11.5 FL (9.6-12.0); Monocytes # 0.4 10*3/uL (0.11-0.8); Monocytes % 8.1 % (1.7-12.7); Neutrophils # 3.4 10*3/uL (1.4-7.4); Neutrophils % 65.3 % (38.7-73.9); Platelet Count 171 T/CUMM (130-400); Red Blood Count 2.96 MC/CUMM (3.8-5.5); Red Cell Distribution Width 15.3 % (9.3-17.3); White Blood Count 5.2 T/CUMM (4-12)
[2017-10-24 05:04] LABS: Albumin 2.6 G/DL (3.4-5.0); Bilirubin,Total 0.7 MG/DL (0.2-1.0); Calcium 7.2 MG/DL (8.5-10.1); Osmolality,Calculated 283.5 MOS/KG (273-304); Potassium 4.4 MMOL/L (3.5-5.1)
[2017-10-24] MEDS: FOSINOPRIL 20 MG TABLET PO SCH (09:43)
[2017-10-24] MEDS: CARVEDILOL 25 MG TABLET PO SCH ×2 (09:43→21:34)
[2017-10-24] MEDS: cloNIDine 0.1 MG TABLET PO SCH ×2 (09:43→21:34)
[2017-10-24] MEDS: amLODIPine 10 MG TABLET PO SCH (09:43)
[2017-10-24] MEDS: INSULIN LISPRO 100 UNIT/ML SUBCUT SCH ×3 (14:56→16:45)
[2017-10-24] MEDS: INSULIN GLARGINE 100 UNIT/ML SUBCUT SCH (21:34)
[2017-10-25] MEDS: INSULIN LISPRO 100 UNIT/ML SUBCUT SCH ×3 (07:57→18:10)
[2017-10-25] MEDS: cloNIDine 0.1 MG TABLET PO SCH ×2 (10:30→20:54)
[2017-10-25] MEDS: CARVEDILOL 25 MG TABLET PO SCH ×2 (10:30→20:54)
[2017-10-25] MEDS: BISACODYL 5 MG TABLET PO SCH ×3 (10:54→23:27)
[2017-10-25] MEDS: FOSINOPRIL 20 MG TABLET PO SCH (14:30)
[2017-10-25] MEDS: amLODIPine 10 MG TABLET PO SCH (14:30)
[2017-10-25] MEDS ORDERED: POLYETHYLENE GLYCOL 3350/ELECTROLYTES 4,000 ML BOTTLE PO ONE (18:00)
[2017-10-25] MEDS: INSULIN GLARGINE 100 UNIT/ML SUBCUT SCH (20:49)
[2017-10-25] MEDS ORDERED: DEXTROSE 50% 25 GM/50 ML VIAL IV ONE (20:58)
[2017-10-25] MEDS ORDERED: MAGNESIUM CITRATE 300 ML BOTTLE PO ONE (21:00)
[2017-10-26 05:34] LABS: Basophils % 0.7 % (0.0-0.8); Eosinophils # 0.4 10*3/uL (0.0-0.87); Eosinophils % 9.9 % (0.00-10.9); Hematocrit 26.8 VOL% (35.7-47.0); Hemoglobin 8.8 GM/DL (12.0-16.0); Immature Granulocytes % 0.2 %; Immature Granulocytes Absolute 0.01 #; Lymphocytes # 0.7 10*3/uL (1.4-4.0); Lymphocytes % 16.1 % (21.3-54.2); Mean Corpuscular HGB Conc 32.8 GM/DL (32-36); Mean Corpuscular Hemoglobin 31 PG (27-34); Mean Corpuscular Volume 93.4 FL (87-102); Mean Platelet Volume 11.7 FL (9.6-12.0); Monocytes # 0.4 10*3/uL (0.11-0.8); Monocytes % 8.9 % (1.7-12.7); Neutrophils # 2.8 10*3/uL (1.4-7.4); Neutrophils % 64.2 % (38.7-73.9); Platelet Count 162 T/CUMM (130-400); Red Blood Count 2.87 MC/CUMM (3.8-5.5); White Blood Count 4.4 T/CUMM (4-12)
[2017-10-26 05:51] LABS: Calcium 7.3 MG/DL (8.5-10.1); Potassium 4.5 MMOL/L (3.5-5.1)
[2017-10-26] MEDS: INSULIN LISPRO 100 UNIT/ML SUBCUT SCH (07:52)
[2017-10-26] MEDS ORDERED: BISACODYL 5 MG TABLET PO SCH (08:00)
[2017-10-26] MEDS ORDERED: PROPOFOL 200 MG/20 ML VIAL IV ONE (09:00)
[2017-10-26] MEDS ORDERED: LIDOCAINE 100 MG/5 ML SYRINGE ONE (09:00)
[2017-10-26] MEDS: cloNIDine 0.1 MG TABLET PO SCH (10:17)
[2017-10-26] MEDS: CARVEDILOL 25 MG TABLET PO SCH (10:17)
[2017-10-26] MEDS: amLODIPine 10 MG TABLET PO SCH (10:17)
[2017-10-26] MEDS: FOSINOPRIL 20 MG TABLET PO SCH (10:18)
[2017-10-26 11:33] VITALS: BP 173/68
== END 2017-10-26 12:27 | disposition home or self-care (01) | DRG 640 ==
LOC: EDUNIT# → EDBD → N.ED 10:55 → N.EDINP 14:45 → SUATTDRO 14:45 → N.EDINP 15:30 → N.ICU 16:19 → N.2E 10-24 15:47
PROVIDERS: ADMIT Family Medicine; ATTEND Internal Medicine

== ENCOUNTER 2017-12-18 04:03 | Inpatient (IN) ==
[2017-12-18 04:42] LABS: Basophils % 0.5 % (0.0-0.8); Eosinophils # 0.4 10*3/uL (0.0-0.87); Eosinophils % 5.2 % (0.00-10.9); Hematocrit 32.8 VOL% (35.7-47.0); Hemoglobin 10.5 GM/DL (12.0-16.0); Immature Granulocytes % 0.6 %; Immature Granulocytes Absolute 0.05 #; Lymphocytes % 12.5 % (21.3-54.2); Mean Corpuscular Hemoglobin 31 PG (27-34); Mean Platelet Volume 11.5 FL (9.6-12.0); Monocytes # 0.4 10*3/uL (0.11-0.8); Monocytes % 5.4 % (1.7-12.7); Neutrophils # 5.9 10*3/uL (1.4-7.4); Neutrophils % 75.8 % (38.7-73.9); Platelet Count 207 T/CUMM (130-400); Red Blood Count 3.38 MC/CUMM (3.8-5.5); Red Cell Distribution Width 17.7 % (9.3-17.3); White Blood Count 7.8 T/CUMM (4-12)
[2017-12-18] MEDS ORDERED: hydrALAZINE 20 MG/1 ML VIAL IV STA (04:46)
[2017-12-18 05:09] LABS: Albumin 3.6 G/DL (3.4-5.0); Bilirubin,Total 0.7 MG/DL (0.2-1.0); Calcium 7.5 MG/DL (8.5-10.1); Osmolality,Calculated 311.1 MOS/KG (273-304); Total Protein 7.7 G/DL (6.4-8.3)
[2017-12-18] MEDS ORDERED: ONDANSETRON 4 MG/2 ML VIAL IV PRN (05:38)
[2017-12-18] MEDS ORDERED: ACETAMINOPHEN 325 MG TABLET PO PRN (05:38)
[2017-12-18] MEDS ORDERED: hydrALAZINE 20 MG/1 ML VIAL IV PRN ×2 (05:38→06:28)
[2017-12-18] MEDS ORDERED: MORPHINE 4 MG/1 ML VIAL IV PRN (05:38)
[2017-12-18] MEDS: NITROGLYCERIN 2% OINT 1 INCH/GM PACK TOP SCH ×3 (08:11→17:56)
[2017-12-18 08:54] LABS: Hepatitis A Ab IgM Quant 0.06 Index; Hepatitis A Ab IgM Result Negative (Negative); Hepatitis B Core IgM Quant 0.08 Index; Hepatitis B Core IgM Result Negative (Negative); Hepatitis B Surface Ag Quant 0.11 Index; Hepatitis B Surface Ag Result Negative (Negative); Hepatitis C Virus Ab Quant 0.11 Index; Hepatitis C Virus Ab Result Negative (Negative)
[2017-12-18] MEDS ORDERED: PANTOPRAZOLE 40 MG TABLET PO SCH (09:00)
[2017-12-18] MEDS ORDERED: CARVEDILOL 25 MG TABLET PO SCH ×2 (17:30→21:00)
[2017-12-18] MEDS ORDERED: INSULIN REGULAR 100 UNIT/ML ONE (17:44)
[2017-12-18] MEDS ORDERED: amLODIPine 10 MG TABLET PO SCH (18:00)
[2017-12-18] MEDS ORDERED: cloNIDine 0.1 MG TABLET PO SCH (18:00)
[2017-12-18 18:57] VITALS: BP 187/71
[2017-12-18] MEDS ORDERED: ALPRAZolam 0.5 MG TABLET PO SCH (21:00)
[2017-12-18] MEDS ORDERED: INSULIN REGULAR 100 UNIT/ML SUBCUT SCH (21:00)
[2017-12-19] MEDS ORDERED: amLODIPine 10 MG TABLET PO SCH (09:00)
[2017-12-19] MEDS ORDERED: cloNIDine 0.1 MG TABLET PO SCH (09:00)
== END 2017-12-18 20:09 | disposition home or self-care (01) | DRG 189 ==
LOC: N.ED 04:03 → N.EDINP 05:38 → N.TELES 06:22
PROVIDERS: ADMIT Internal Medicine Geriatric Medicine; ATTEND Internal Medicine Geriatric Medicine

== ENCOUNTER 2018-01-19 16:26 | Inpatient (IN) ==
[2018-01-19] MEDS ORDERED: hydrALAZINE 20 MG/1 ML VIAL IV STA (17:37)
[2018-01-19 17:40] LABS: Basophils # 0.1 10*3/uL (0.0-0.2); Eosinophils # 0.3 10*3/uL (0.0-0.87); Eosinophils % 6.3 % (0.00-10.9); Hematocrit 31.8 VOL% (35.7-47.0); Hemoglobin 10.5 GM/DL (12.0-16.0); Immature Granulocytes % 0.4 %; Immature Granulocytes Absolute 0.02 #; Lymphocytes # 0.6 10*3/uL (1.4-4.0); Mean Corpuscular Hemoglobin 31 PG (27-34); Mean Corpuscular Volume 93.8 FL (87-102); Mean Platelet Volume 11.9 FL (9.6-12.0); Monocytes # 0.3 10*3/uL (0.11-0.8); Monocytes % 6.5 % (1.7-12.7); Neutrophils # 3.8 10*3/uL (1.4-7.4); Neutrophils % 74.8 % (38.7-73.9); Platelet Count 162 T/CUMM (130-400); Red Blood Count 3.39 MC/CUMM (3.8-5.5); Red Cell Distribution Width 16.8 % (9.3-17.3); White Blood Count 5.1 T/CUMM (4-12)
[2018-01-19 17:53] LABS: Albumin 3.4 G/DL (3.4-5.0); Bilirubin,Total 0.9 MG/DL (0.2-1.0); Calcium 8.3 MG/DL (8.5-10.1); Osmolality,Calculated 289.5 MOS/KG (273-304); Potassium 3.3 MMOL/L (3.5-5.1); Total Protein 7.1 G/DL (6.4-8.3)
[2018-01-19] MEDS ORDERED: ACETAMINOPHEN 325 MG TABLET PO PRN (18:48)
[2018-01-19] MEDS ORDERED: DOCUSATE SODIUM 100 MG CAPSULE PO PRN (18:48)
[2018-01-19] MEDS ORDERED: DEXTROSE 50% 25 GM/50 ML VIAL IV PRN (18:48)
[2018-01-19] MEDS ORDERED: ONDANSETRON 4 MG/2 ML VIAL IV PRN (18:48)
[2018-01-19] MEDS ORDERED: traZODone 50 MG TABLET PO PRN (18:48)
[2018-01-19] MEDS ORDERED: GLUCAGON 1 MG VIAL IM PRN (18:48)
[2018-01-19] MEDS ORDERED: niCARdipine INJ 25 MG in SODIUM CHLORIDE 0.9% 240 ML IV PRN (18:52)
[2018-01-19] MEDS ORDERED: ALPRAZolam 0.5 MG TABLET PO PRN (18:54)
[2018-01-19] MEDS ORDERED: HydrOXYzine PAMOATE 25 MG CAPSULE PO PRN (18:54)
[2018-01-19] MEDS ORDERED: CETIRIZINE 10 MG TABLET PO PRN (18:54)
[2018-01-19] MEDS ORDERED: niCARdipine 25 MG/10 ML VIAL IV ONE (19:30)
[2018-01-19] MEDS ORDERED: PNEUMOCOCCAL VACCINE (13 VALENT) 0.5 ML SYRINGE IM ONE (20:41)
[2018-01-19] MEDS: CARVEDILOL 25 MG TABLET PO SCH (21:55)
[2018-01-19] MEDS: DOXAZOSIN 1 MG TABLET PO SCH (21:55)
[2018-01-19] MEDS: cloNIDine 0.1 MG TABLET PO SCH (21:55)
[2018-01-19] MEDS: AMITRIPTYLINE 10 MG TABLET PO SCH (21:55)
[2018-01-19] MEDS: ENOXAPARIN 30 MG/0.3 ML SYRINGE SUBCUT SCH (21:56)
[2018-01-19] MEDS: INSULIN GLARGINE 100 UNIT/ML SUBCUT SCH (21:56)
[2018-01-19] MEDS: INSULIN REGULAR 100 UNIT/ML SUBCUT SCH (21:56)
[2018-01-20 03:44] LABS: Basophils % 1.1 % (0.0-0.8); Eosinophils # 0.3 10*3/uL (0.0-0.87); Eosinophils % 7.6 % (0.00-10.9); Hematocrit 29.3 VOL% (35.7-47.0); Hemoglobin 9.2 GM/DL (12.0-16.0); Immature Granulocytes % 0.3 %; Immature Granulocytes Absolute 0.01 #; Lymphocytes # 0.8 10*3/uL (1.4-4.0); Lymphocytes % 20.6 % (21.3-54.2); Mean Corpuscular HGB Conc 31.4 GM/DL (32-36); Mean Corpuscular Hemoglobin 31 PG (27-34); Mean Platelet Volume 12.1 FL (9.6-12.0); Monocytes # 0.3 10*3/uL (0.11-0.8); Monocytes % 8.1 % (1.7-12.7); Neutrophils # 2.3 10*3/uL (1.4-7.4); Neutrophils % 62.3 % (38.7-73.9); Platelet Count 150 T/CUMM (130-400); Red Blood Count 3.02 MC/CUMM (3.8-5.5); Red Cell Distribution Width 16.7 % (9.3-17.3); White Blood Count 3.7 T/CUMM (4-12)
[2018-01-20 04:12] LABS: % Iron Saturation 20.7 % (18-50); Albumin 2.9 G/DL (3.4-5.0); Bilirubin,Direct 0.19 MG/DL (0.0-0.20); Bilirubin,Indirect 0.7 MG/DL (0.0-1.0); Bilirubin,Total 0.9 MG/DL (0.2-1.0); Ferritin 593.3 ng/ml (8-252)
[2018-01-20 04:18] LABS: Folate > 24.0 NG/ML (5.4-24.0); Vitamin B12 1647 PG/ML (211-911)
[2018-01-20 04:19] LABS: Calcium 7.9 MG/DL (8.5-10.1); Osmolality,Calculated 289.1 MOS/KG (273-304); Potassium 3.6 MMOL/L (3.5-5.1); Risk Ratio 2.44; Thyroid Stimulating Hormone 1.75 uIU/ml (0.358-3.74); VLDL CHOLESTEROL 10.6 MG/DL
[2018-01-20 05:17] LABS: Sedimentation Rate-Westergren 29 MM/HR (0-30)
[2018-01-20 06:00] LABS: Hypochromasia Slight; Platelet Estimate Normal; Reactive Lymphocytes 1+
[2018-01-20] MEDS: CALCIUM ACETATE 667 MG CAPSULE PO SCH ×3 (09:07→17:15)
[2018-01-20] MEDS: FLUoxetine 20 MG CAPSULE PO SCH (09:07)
[2018-01-20] MEDS: LISINOPRIL 20 MG TABLET PO SCH (09:07)
[2018-01-20] MEDS: amLODIPine 10 MG TABLET PO SCH (09:07)
[2018-01-20] MEDS: DOXAZOSIN 1 MG TABLET PO SCH ×2 (09:08→20:56)
[2018-01-20] MEDS: cloNIDine 0.1 MG TABLET PO SCH ×2 (09:08→20:56)
[2018-01-20] MEDS: CARVEDILOL 25 MG TABLET PO SCH ×2 (09:08→20:56)
[2018-01-20] MEDS: INSULIN LISPRO 100 UNIT/ML SUBCUT SCH ×3 (09:09→17:15)
[2018-01-20] MEDS: INSULIN REGULAR 100 UNIT/ML SUBCUT SCH ×4 (09:09→20:57)
[2018-01-20] MEDS: INSULIN GLARGINE 100 UNIT/ML SUBCUT SCH (20:56)
[2018-01-20] MEDS: ENOXAPARIN 30 MG/0.3 ML SYRINGE SUBCUT SCH (20:57)
[2018-01-20] MEDS: AMITRIPTYLINE 10 MG TABLET PO SCH (20:57)
[2018-01-21] MEDS ORDERED: DOXAZOSIN 1 MG TABLET PO SCH (06:29)
[2018-01-21] MEDS: INSULIN REGULAR 100 UNIT/ML SUBCUT SCH ×2 (08:47→11:21)
[2018-01-21] MEDS: INSULIN LISPRO 100 UNIT/ML SUBCUT SCH ×2 (08:48→11:24)
[2018-01-21] MEDS: CALCIUM ACETATE 667 MG CAPSULE PO SCH ×2 (08:48→11:23)
[2018-01-21] MEDS: LISINOPRIL 20 MG TABLET PO SCH (08:49)
[2018-01-21] MEDS: amLODIPine 10 MG TABLET PO SCH (08:50)
[2018-01-21] MEDS: CARVEDILOL 25 MG TABLET PO SCH (08:50)
[2018-01-21] MEDS: FLUoxetine 20 MG CAPSULE PO SCH (08:50)
[2018-01-21] MEDS: cloNIDine 0.1 MG TABLET PO SCH (08:50)
[2018-01-21 11:38] VITALS: BP 155/71
[2018-01-22 09:16] LABS: Hemoglobin A1 (Alkaline) 98.3 % (96.5-98.5); Hemoglobin A2 (Alkaline) 1.7 % (1.5-3.5)
== END 2018-01-21 13:36 | disposition home or self-care (01) | DRG 304 ==
LOC: N.ED 16:26 → N.EDINP 18:48 → SUATTDRO 18:48 → N.ICU 19:24 → N.TELEN 01-20 14:17
PROVIDERS: ADMIT Hospitalist; ATTEND Hospitalist